=== PATIENT | male | born 1980 | race Caucasian/White ===

== ENCOUNTER 2022-06-20 08:33 | Outpatient (CLI) | payer OTHER, SELFPAY | END 2022-06-20 08:34 | disposition home or self-care (01) | LOC: NFLDREF 06-21 13:19 | PROVIDERS: PCP Family Medicine; Referring Provider Family Medicine; Visit Provider Family Medicine | DX: Z00.00 Encounter for general adult medical examination without abnormal findings (principal); E11.9 Type 2 diabetes mellitus without complications; E78.5 Hyperlipidemia, unspecified; E78.00 Pure hypercholesterolemia, unspecified; L03.90 Cellulitis, unspecified; J45.909 Unspecified asthma, uncomplicated | CPT/HCPCS: 80053; 80061; 82043; 82570 ==

== ENCOUNTER 2022-12-22 15:08 | Outpatient (CLI) | payer OTHER, SELFPAY | END 2022-12-22 15:09 | disposition home or self-care (01) | LOC: NFLDREF 12-30 08:57 | PROVIDERS: PCP Family Medicine; Referring Provider Family Medicine; Visit Provider Family Medicine | DX: E11.9 Type 2 diabetes mellitus without complications (principal); E78.5 Hyperlipidemia, unspecified; R79.89 Other specified abnormal findings of blood chemistry; J45.909 Unspecified asthma, uncomplicated; E78.00 Pure hypercholesterolemia, unspecified | CPT/HCPCS: 80053 ==

== ENCOUNTER 2023-12-27 15:14 | Emergency (ER) | payer OTHER, SELFPAY ==
[2023-12-27 15:19] VITALS: BP 140/94; PULSE 99; RESP 16; TEMP 36.2; O2SAT 95; BMI 36.2
[2023-12-27 15:49] VITALS: O2SAT 98
[2023-12-27 16:45] VITALS: BP 133/92
[2023-12-27 16:55] VITALS: BP 129/83
[2023-12-27] MEDS: NITROGLYCERIN 0.4 MG TAB.SUBL SUBLINGUAL (16:57)
--- NOTE | 2023-12-27 17:20 | ED.GENADULT ---
HPI - General Adult General Date Seen: 12/27/23 Chief complaint: Chest Pain Stated complaint: abnormal EKG - from [facility] Time Seen by Provider: 12/27/23 15:36 Source: patient, RN notes reviewed and old records reviewed Mode of arrival: ambulatory Limitations: no limitations History of Present Illness HPI narrative: Patient is a 43-year-old male here for evaluation of chest pain. He was in clinic earlier today and had an EKG, troponin, D-dimer, metabolic panel and CBC. These were all within normal limits. He had a chest x-ray as well which was normal. He tells me that he had an episode of chest pain starting last night around 8:00 p.m. after getting home from driving his kids around. He says that lasted for about 2 hours, localized left chest pain, achy in nature. Resolved spontaneously. No clear exertional component. He went to work this morning but by 9:00 a.m. says he was noticing pain again in it has been persistent since then. Seen in the ER at around 4:00 p.m. and states that pain has been constant since it started at 9:00 a.m.. He had a troponin in clinic around 2:00 p.m. which was negative. He does not smoke or drink excessively. Does have a history of diabetes. Normally does not have elevated blood pressure. Negative Lexiscan in 2019. Related Data Home Medications ?Medication ?Instructions ?Recorded ?Confirmed cholecalciferol (vitamin D3) 50 50 mcg PO QDAY 03/17/22 12/27/23 mcg (2,000 unit) capsule nirmatrelvir 300 mg (150 mg ea PO 12/27/23 x2)-ritonavir 100 mg tablet,dose pack (Paxlovid) Previous Rx's ?Medication ?Instructions ?Recorded albuterol sulfate 1.25 mg/3 mL 1.25 mg (3 mL) inhalation Q4-6H 06/23/22 solution for nebulization PRN shortness of breath or wheezing #90 mL albuterol sulfate 90 mcg/actuation 2 puff inhalation Q4-6H PRN 06/23/22 aerosol inhaler (Ventolin HFA) shortness of breath or wheezing #8.5 grams blood sugar diagnostic (Advanced #100 ea 06/23/22 Glucose Meter Test Strips) lancets (Accu-Chek Softclix #100 ea 06/23/22 Lancets) semaglutide 0.25 mg or 0.5 mg (2 0.5 mg (0.374 mL) subcut QWEEK #3 09/09/22 mg/1.5 mL) subcutaneous pen mL injector (Ozempic) fluticasone propionate 230 2 puff inhalation BID #12 grams 11/21/23 mcg-salmeterol 21 mcg/actuation HFA inhaler semaglutide 1 mg/dose (4 mg/3 mL) 1 mg (0.75 mL) subcut QWEEK #6 mL 12/27/23 subcutaneous pen injector (Ozempic) Allergies Allergy/AdvReac Type Severity Reaction Status Date / Time penicillin V Allergy Mild Unknown Verified 12/27/23 13:23 Review of Systems Status of ROS: Reports: 10 or more systems reviewed and unremarkable except as noted in History and below [facility] Medical History Elevated hemoglobin ?D58.2 - Other hemoglobinopathies (ICD-10) Hypertriglyceridemia ?E78.1 - Pure hyperglyceridemia (ICD-10) Neuropathy ?G62.9 - Polyneuropathy, unspecified (ICD-10) Encounter for annual physical exam ?Z00.00 - Encounter for general adult medical examination without abnormal findings (ICD-10) Social History Smoking Status: Never smoker Do you use any of these nicotine containing products: None Second hand tobacco smoke exposure: No How often do you have a drink containing alcohol: never How often do you have six or more drinks on one occasion: Never AUDIT-C Alcohol total score: 0 Non-prescribed substance use: denies use Little interest or pleasure in doing things: not at all Feeling down, depressed, or hopeless: not at all service: No Exam Narrative: Exam Narrative: Vital signs as noted above. In general, an alert, well-appearing patient. Head: Normocephalic, atraumatic. Eyes: Pupils are equal reactive. Extraocular movements are full. Conjunctivae are normal. ENT: Mucous membranes are moist. Throat is normal. Neck: Supple without lymphadenopathy. Heart: Regular rate and rhythm. No murmur or rub. Chest wall is nontender. Lungs: Clear bilaterally. No increased work of breathing, crackles or wheezes. Abdomen: Soft and nontender. No organomegaly. Extremities: Well perfused. No edema. No calf tenderness. Pulses intact. Neurologic: Patient is alert and oriented to person and place. Speech is fluent. Face is symmetric. Moves all extremities equally. Affect: Normal. Skin: Warm and dry. Well perfused. Const: Vital Signs, click to edit/add: Vital Signs - 24 hr 12/27/23 15:19 12/27/23 15:49 Temperature 97.2 F L Pulse Rate [Left P ulse Oximeter] 99 Respiratory Rate 16 Blood Pressure [Ri ght Upper Arm] 140/94 H Pulse Oximetry 95 98 Documenting provider has reviewed patient's vital signs: yes Course Course ED Course: Records from clinic were reviewed. I discussed with the patient and his that for the most part things that I would do here in the ER had been done already in clinic number reassuring. I did do a repeat troponin which is effectively a 2 hour troponin, this remains at 0. I repeated his EKG and I reviewed the EKG from clinic. This shows normal sinus rhythm, ventricular rate of 86, no acute ST segment changes, an unremarkable T-waves. EKG here in the ER is unchanged compared to previous. I did try giving him a nitroglycerin here, he feels like it helped his chest pain. I think a stress test as a reasonable next step. There is no sign today of acute coronary syndrome and symptoms are a little bit overall not entirely a suggestive of angina. I will have him take a daily aspirin while we finish getting this evaluated. Would like him to have a Lexiscan, then be seen by primary care. If at any time he has significant pain or new symptoms such as shortness of breath, nausea, vomiting, fainting etcetera, return immediately to the ER. Vital Signs Vital signs: Initial Vital Signs Temperature 97.2 F L 12/27/23 15:19 Temperature Source Temporal Artery Scan 12/27/23 15:19 Pulse Rate 99 12/27/23 15:19 Pulse Rhythm Regular 12/27/23 15:19 Pulse Strength 3+ Normal 12/27/23 15:19 Respiratory Rate 16 12/27/23 15:19 Blood Pressure 140/94 H 12/27/23 15:19 Blood Pressure Mean 109 H 12/27/23 15:19 Blood Pressure Position Sitting 12/27/23 15:19 Pulse Oximetry 95 12/27/23 15:19 Vital Signs Temperature 97.2 F L 12/27/23 15:19 Pulse Rate 99 12/27/23 15:19 Respiratory Rate 16 12/27/23 15:19 Blood Pressure 140/94 H 12/27/23 15:19 Pulse Oximetry 95 12/27/23 15:19 Temperature 97.2 F L 12/27/23 15:19 Pulse Rate 99 12/27/23 15:19 Respiratory Rate 16 12/27/23 15:19 Blood Pressure 140/94 H 12/27/23 15:19 Pulse Oximetry 98 12/27/23 15:49 Medications Administered Medications: Discontinued Medications Generic Name Dose Route Start Last Admin Trade Name Freq PRN Reason Stop Dose Admin Nitroglycerin 0.4 mg 12/27/23 16:51 12/27/23 16:57 Nitroglycerin 0.4 Mg Tab.Subl SUBLINGUAL 12/27/23 16:52 0.4 mg ONCE ONE Administration Medical Decision Making Lab Data Labs: Lab Results 12/27/23 Range/Units 15:49 POC Troponin I 0.00 L (0.01-0.04) ng/ml Discharge Plan Discharge Clinical Impression: Chest pain Patient Disposition: Home, Self-Care Condition: Stable Instructions: Chest Pain (DC) Additional Instructions: We will get you set up for a follow-up stress test, I have placed this order and someone should call you from here to get this scheduled. For now, lets have you take an aspirin daily while we are finishing your work up. For severe pain or new symptoms such as shortness of breath, nausea, vomiting, the fainting etcetera, return to the emergency department at any time. You should be seen by your primary doctor following your stress test Prescriptions: No Action (DME) Advanced Gluc Meter Test Strip Strip See Rx Instructions .Route Qty: 100 1RF Rx Instructions: bid (DME) lancets [Accu-Chek Softclix Lancets] Misc See Rx Instructions .Route Qty: 100 1RF Rx Instructions: bid albuterol sulfate [Ventolin HFA] 90 mcg/actuation HFA aerosol inhaler 2 puff inhalation Q4-6H PRN (Reason: shortness of breath or wheezing) Qty: 8.5 2RF albuterol sulfate 1.25 mg/3 mL solution for nebulization 1.25 mg inhalation Q4-6H PRN (Reason: shortness of breath or wheezing) Qty: 90 1RF Paxlovid 300 mg (150 mg x 2)-100 mg tablets,dose pack PO cholecalciferol (vitamin D3) 50 mcg (2,000 unit) capsule 50 mcg PO QDAY Ozempic 0.25 mg or 0.5 mg(2 mg/1.5 mL) pen injector 0.5 mg subcut QWEEK Qty: 3 2RF fluticasone propion-salmeterol 230-21 mcg/actuation HFA aerosol inhaler 2 puff inhalation BID Qty: 12 2RF Ozempic 1 mg/dose (4 mg/3 mL) pen injector 1 mg subcut QWEEK Qty: 6 1RF Follow Up/Referrals: Alexx Richardson MD [Primary Care Provider] - Stand Alone [facility] Inst[facility]
[2023-12-27 17:22] VITALS: BP 126/83
== END 2023-12-27 17:30 | disposition home or self-care (01) ==
PROVIDERS: Emergency Provider Emergency Medicine; PCP Family Medicine
DX: R07.9 Chest pain, unspecified (principal)
CPT/HCPCS: 84484; 93005; 94761; 99284; A9270

== ENCOUNTER 2024-01-09 08:17 | Outpatient (RCR) | payer OTHER, SELFPAY ==
[2024-01-09] MEDS: REGADENOSON 0.4 MG/5 ML SYRINGE IVP (10:10)
[2024-01-09] MEDS: SODIUM CHLORIDE 0.9 % (FLUSH) 10 ML SYRINGE IVF (10:10)
[2024-01-09 10:16] VITALS: BP 146/85; PULSE 106; RESP 16
--- NOTE | 2024-01-09 11:26 | PM.ST ---
Stress Test Note Date Date Seen: 01/09/24 Date of test: 01/09/24 Providers Primary care provider: Alexx Richardson Stress test physician: Tj Mae Stress Test Note Stress test ordered: Lexiscan Indication for test: Chest Pain Stress test medicine: Lexiscan Results discussion: 43-year-old gentleman who presents here for the above test. After discussion the risks benefits and side effects he would like to proceed , pretest cardiac history form is reviewed. Indication for test is chest pain. Pretest EKG shows normal sinus rhythm, with a ventricular rate of 90 and a blood pressure 134/90. Standard infusion of Lexiscan is done over a 5 minute. Following protocol, he achieved a metabolic equivalent of 1.6, with a maximum heart rate of 125. No significant symptomatic or subjective complaints are noted. Review of the tracing shows no evidence of ST wave changes suggestive of ischemia or any change, there is no dysrhythmias. Impression: Negative electrographic portion of Lexiscan. Subjectively negative Follow up suggested: Await nuclear Medicine review of the test, the clinical correlation with this will be needed, Tums the patient will follow-up with primary care physician we did make him an appointment. The there were no complications
== END 2024-01-09 10:17 | disposition home or self-care (01) ==
LOC: STRESS 08:17
PROVIDERS: PCP Family Medicine; Visit Provider Emergency Medicine
DX: R07.9 Chest pain, unspecified (principal)
CPT/HCPCS: 78452; 93016; 93017; A9500; J2785

== ENCOUNTER 2024-02-08 15:10 | Outpatient (CLI) | payer OTHER, SELFPAY ==
--- OUTSIDE RECORDS SUMMARY | 2024-02-08 15:12 | XMS_ITS | Clinical Summary ---
Author Organization [employer] [facility] [employer] [facility] Address [place], [place] [address] Care Team Providers Care Buzzsaw Operator Name Role Phone Nonstaff, Doctor Primary Care Provider Unavailab le Allergies Active Allergy Reactions Criticality Noted Date Comments Penicillins Rash 09/22/2006 Theophylline Vomiting 09/22/2006 Medications Medication Sig Dispensed Refills Start Date End Date Status albuterol (PROVENTIL) 0.083 % neb solutionIndications:M ild persistent asthma without complication Inhale 3 mL via a nebulizer every 4 hours if needed. 1 box 4 02/03/2017 Active atorvastatin (LIPITOR) 20 mg tabletIndications:Hyp erlipidemia, unspecified hyperlipidemia type,High triglycerides Take 1 tablet by mouth once daily. 90 tablet 3 02/03/2017 Active fluticasone-salmetero l (ADVAIR DISKUS) 250-50 mcg/Dose diskus inhalerIndications:Mi ld intermittent asthma without complication Inhale 1 Puff by mouth 2 times daily. 3 Inhaler 4 02/03/2017 Active fluticasone-salmetero l (ADVAIR DISKUS) 500-50 mcg/Dose diskus inhalerIndications:Mi ld persistent asthma without complication Inhale 1 Puff by mouth 2 times daily. 1 Inhaler 3 02/03/2017 Active albuterol HFA (PROAIR HFA) 90 mcg/actuation inhalerIndications:Mi ld intermittent asthma without complication Inhale 2 Puffs by mouth every 4 hours if needed. 8.5 g 6 02/03/2017 Active CPAPIndications:Obstr uctive sleep apnea CPAP machine for home use at pressure: 4-15 CM H20 , Heated humidifier x 1, Humidifier chamber x 1, Full face mask with cushion x 1, Heated tubing x 1, Headgear x 1, Filters: Disposable x 1pk & Reusable x 1pk, Length of Need: 99 months, Frequency of use: Daily 1 Device 03/17/2017 Active olopatadine (PATANOL) 0.1 % ophthalmic solutionIndications:A llergic conjunctivitis of both eyes Place 1 Drop into both eyes 2 times daily. 2 Bottle 5 03/30/2017 Active Active Problems Problem Noted Date Diagnosed Date Mild persistent asthma without complication 01/09 High triglycerides 02/19/2010 Unspecified asthma(493.90) 09/22/2006 Undiagnosed cardiac murmurs 09/22/2006 Other specified gastritis without mention of hem orrhage 09/22/2006 Esophageal reflux 09/22/2006 Encounters Date Type Department Care Team Description 02/08/2024 2:30 PM CDT Office Visit [facility] [address] [place] [address] Darrius Parrish MD Arrived 01/09/2024 8:30 AM CDT Ancillary Procedure [facility] [address] [place] [address] from Last 3 Months Immunizations Name Administration Dates Next Due Influenza, IIV3 (Age >=3 years) 03/16/2011,02/19,01/27/2009,02/04/2006 Td (Age >=7 Years) 05/07/2001 Family History Medical History Relation Name Comments Diabetes Father Other Father obesity Good Health Mother Other Mother obesity Other Sister 1 obesity Other Sister 2 obesity Relation Name Status Comments Father Mother Sister 1 Sister 2 Social History Tobacco Use Types Packs/Day Years Used Date Smoking Tobacco: Never Smokeless Tobacco: Never Tobacco Cessation:Counseling Given: Yes Alcohol Use Standard Drinks/Week Comments No 0 (1 standard drink = 0.6 oz pur e alcohol) Sex and Gender Information Value Date Recorded Sex Assigned at Not on file Gender Identity Not on file Sexual Orientation Not on file Obstetrics History Last Filed Vital Signs Vital Sign Reading Time Taken Comments Blood Pressure 117/74 03/30/2017 4:31 PM SUBSTATION OPERATOR CONVERSION Pulse 90 03/30/2017 4:31 PM SUBSTATION OPERATOR CONVERSION Temperature 37.1 ??C (98.8 ??F) 03/17/2017 9:11 AM CS T Respiratory Rate 20 03/17/2017 9:11 AM SUBSTATION OPERATOR CONVERSION Oxygen Saturation 96% 03/30/2017 4:31 PM SUBSTATION OPERATOR CONVERSION Inhaled Oxygen Concentration - - Weight 128.8 kg (284 lb) 03/30/2017 4:31 PM SUBSTATION OPERATOR CONVERSION Height 182.9 cm (6') 03/30/2017 4:31 PM SUBSTATION OPERATOR CONVERSION Body Mass Index 38.52 03/30/2017 4:31 PM SUBSTATION OPERATOR CONVERSION Plan of Treatment Health Maintenance Due Date Last Done Comments Tdap 1990 HIV for age 15-65 1994 Hepatitis C screening for age 18-79 1997 Tetanus booster 05/07/2011 05/07/2001 Depression screening for age 12+ 02/03/2018 02/03/2017, 11/23/2015 BMI (ht and wt on same day) for age 18+ 03/30/2018 03/30/2017, 02/03/2017, 07/25/2016, Additional history exists Lipids for age 35-44 02/06/2022 02/06/2017, 05/12/2014, 05/12/2014, Additional history exists COVID-19 vaccine series ( season) 2023 Influenza for age 9-49 12/10/2023 , 02/19/2010, 01/27/2009, Additional history exists Pneumococcal series for age 6-64 Aged Out No longer eligible based on patient's age to complete this topic Procedures Procedure Name Priority Date/Time Associated Diagnosis Comments NM CARDIAC MPI STRESS TEST Routine 01/09/2024 1:20 PM CDT Chest pain LIPID PANEL W REFLEX MEASURED LDL Routine 02/06/2017 9:03 AM CDT High triglycerides from Last 3 Months or Most Recently Relevant to Health Maintenance Results * NM CARDIAC MPI STRESS TEST (01/09/2024 1:20 PM CDT) Anatomical Region Laterality Modality HEART Ultrasound 01/02/2024 9:18 AM CDT Narrative 01/10/2024 12:54 PM CDT ? Toll -free: [phone] ?[employer] ?MYOCARDIAL PERFUSION IMAGING REPORT REST/STRESS SINGLE ISOTOPE GATED SPECT IMAGING. Patient Name: ?? QUINTEN Jacobs SONNY ? Gender: ? M ? Height: ? 72 in Accession #: ?[id number] ?Weight: ? 266 lb Study Date: ? 01/02/2024 9:18:38 AM ? BSA: ?2.40 m? ? ? : ?1980 43 years ? BMI: ?36.08 kg/m? ? ? Ord. Prov.: ? SALLY H BLOCK ? Monitoring Prov.: Dr. Mae Performing Site [facility] Clinical History: ? Chest pain, lightheaded and palpitations. No known ?coronary artery disease. Cardiac Risk Factors: Hypercholesterolemia and diabetes mellitus. Other Symptomatology: Sleep apnea. Cardiac History: ?None known. Beta laura/calcium channel laura/nitrate taken today: Unknown. Caffeine/methylxanthine taken within 12 hrs: ?Unknown. Chest pain/discomfort at baseline: ?Unknown. IMPRESSION 1. Myocardial perfusion was abnormal. There was a medium-sized area of mild ischemia in the basal, mid, and apical anterior wall. 2. Left ventricular cavity size was normal (resting EDV 123 ml). 3. Overall left ventricular systolic function was normal without wall motion abnormalities. The post stress LVEF was calculated to be 72 %. 4. See separate report for EKG intrepretation. 5. There were no prior studies available for comparison. STRESS MPI PROCEDURE The patient was studied utilizing a two day rest/stress protocol. Myocardial perfusion imaging was performed at rest, 35 minutes following the intravenous injection of 40.4 mCi of 99mTc sestamibi. On the second day, 30 seconds after the 15 second IV regadenoson injection, the patient was injected via IV with 41.1 mCi of 99mTc sestamibi. Gated post-stress tomographic imaging was performed 40 minutes after stress. After image acquisition was completed, data was reconstructed in short, horizontal long and vertical long axis views and tomographic slices were generated. - Pharmacologic stress testing was performed with an IV regadenoson dose of 0.4 mg. - Low level exercise consisting of walking on treadmill at 0.8 mph with a 0% grade was performed for 1 minute prior to, during, and 2 minutes after the vasodilator infusion. - Resting heart rate was 92 bpm, peak heart rate was 125 bpm. - Resting blood pressure was 134 mmHg/90 mmHg; peak blood pressure was 167 mmHg/87 mmHg. - Patient did not develop significant symptoms. FINDINGS Imaging - The overall quality of the study was excellent with mild soft tissue attenuation on rest and stress studies. Computerized motion correction was not applied. - SPECT images demonstrated a medium-sized reversible perfusion abnormality of mild intensity in the basal, mid, and apical anterior wall consistent with ischemia. The specificity of this finding may be decreased by soft tissue attenuation, and most likely represents artifact as opposed to a physiologic finding. - No other fixed or reversible perfusion defects were identified. - Computer processed gated imaging revealed normal left ventricular size with a calculated LVEF of 72 %. (Lab normals: LVEF >50%, LV Size <150 ml). - There was normal post-stress myocardial thickening and wall motion. - No right ventricular abnormalities were identified. - There was no evidence of abnormal lung or extracardiac activity. - Risk/extent of ischemia per ACC Noninvasive Risk Stratification Guideline: LOW RISK. This study was interpreted and electronically signed by Neo Yousif MD on 01/09/2024 4:20:10 PM. ??Final (Updated) ?? Procedure Note Neo Yousif MD - 01/10/2024 Toll -free: [phone] [employer] MYOCARDIAL PERFUSION IMAGING REPORT REST/STRESS SINGLE ISOTOPE GATED SPECT IMAGING. Patient Name: QUINTEN DENNIS Gender: Gisele Height: 72 in Weight: 266 lb Study Date: 01/02/2024 9:18:38 AM BSA: 2.40 m? ? ? : 1980 43 years BMI: 36.08kg/m? ? ? Ord. Prov.: SALLY DE LEON Monitoring Prov.: Dr. Mae Performing Site [facility] Clinical History: Chest pain, lightheaded and palpitations. No known coronary artery disease. Cardiac Risk Factors: Hypercholesterolemia and diabetes mellitus. Other Symptomatology: Sleep apnea. Cardiac History: None known. Beta laura/calcium channel laura/nitrate taken today: Unknown. Caffeine/methylxanthine taken within 12 hrs: Unknown. Chest pain/discomfort at baseline: Unknown. IMPRESSION 1. Myocardial perfusion was abnormal. There was a medium-sized area ofmild ischemia in the basal, mid, and apical anterior wall. 2. Left ventricular cavity size was normal (resting EDV 123 ml). 3. Overall left ventricular systolic function was normal without wallmotion abnormalities. The post stress LVEF was calculated to be 72 %. 4. See separate report for EKG intrepretation. 5. There were no prior studies available for comparison. STRESS MPI PROCEDURE The patient was studied utilizing a two day rest/stress protocol.Myocardial perfusion imaging was performed at rest, 35 minutes followingthe intravenous injection of 40.4 mCi of 99mTc sestamibi. On the secondday, 30 seconds after the 15 second IV regadenoson injection, the patientwas injected via IV with 41.1 mCi of 99mTc sestamibi. Gated post-stresstomographic imaging was performed 40 minutes after stress. After imageacquisition was completed, data was reconstructed in short, horizontallong and vertical long axis views and tomographic slices were generated. - Pharmacologic stress testing was performed with an IV regadenoson doseof 0.4 mg. - Low level exercise consisting of walking on treadmill at 0.8 mph with a0% grade was performed for 1 minute prior to, during, and 2 minutes afterthe vasodilator infusion. - Resting heart rate was 92 bpm, peak heart rate was 125 bpm. - Resting blood pressure was 134 mmHg/90 mmHg; peak blood pressure fui439 mmHg/87 mmHg. - Patient did not develop significant symptoms. FINDINGS Imaging - The overall quality of the study was excellent with mild soft tissue attenuation on rest and stress studies. Computerized motion correction wasnot applied. - SPECT images demonstrated a medium-sized reversible perfusionabnormality of mild intensity in the basal, mid, and apical anterior wall consistentwith ischemia. The specificity of this finding may be decreased by softtissue attenuation, and most likely represents artifact as opposed to aphysiologic finding. - No other fixed or reversible perfusion defects were identified. - Computer processed gated imaging revealed normal left ventricular sizewith a calculated LVEF of 72 %. (Lab normals: LVEF >50%, LV Size <150 ml). - There was normal post-stress myocardial thickening and wall motion. - No right ventricular abnormalities were identified. - There was no evidence of abnormal lung or extracardiac activity. - Risk/extent of ischemia per ACC Noninvasive Risk StratificationGuideline: LOW RISK. This study was interpreted and electronically signed by Jonny Weber 01/09/2024 4:20:10 PM. Final (Updated) Sally De Leon MD NM * (ABNORMAL) LIPID PANEL W REFLEX MEASURED LDL (02/06/2017 9:03 AM CDT) CHOLESTEROL,TOTAL 230(H) 100 - 199 mg/dL 02/06/2017 1:09 PM CDT [facility] TRIGLYCERIDES 395(H) <150 mg/dL 02/06/2017 1:09 PM CDT [facility] HDL CHOLESTEROL 34(L) >40 mg/dL 7 1:09 PM CDT [facility] NON-HDL CHOLESTEROL 196(H) <145 mg/dl 02/06/2017 1:09 PM CDT [facility] CHOL/HDL RATIO 6.76(H) <4.50 02/06/2017 1:09 PM CDT [facility] LDL CHOLESTEROL 117 <=130 mg/dL 02/06/2017 1:09 PM CDT [facility] PROVIDER ORDERED STATUS RANDOM 02/06/2017 1:09 PM CDT [facility] Blood BLOOD SPECIMEN / Unknown Venipuncture / Unknown 02/06/2017 9:03 AM CDT 02/06/2017 9:03 AM CDT Godfrey Martel MD [facility] [address] [place] [address], from Last 3 Months or Most Recently Relevant to Health Maintenance Care Teams Buzzsaw Operator Relationship Specialty Start Date End Date Nonstaff, Doctor NON STAFF DOCTOR PCP - General 09/12/22
== END 2024-02-08 15:11 | disposition home or self-care (01) ==
LOC: NFLDREF 15:10
PROVIDERS: PCP Family Medicine; Visit Provider Internal Medicine Cardiovascular Disease
DX: Z13.29 Encounter for screening for other suspected endocrine disorder (principal)
CPT/HCPCS: 84443

== ENCOUNTER 2024-02-26 13:04 | Outpatient (CLI) | payer OTHER, SELFPAY ==
--- OUTSIDE RECORDS SUMMARY | 2024-02-26 13:07 | XMS_ITS | Clinical Summary ---
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 Name Role Phone Nonstaff, Doctor Primary Care [...] Encounters Date Type Department Care Team Description 02/09/2024 Orders Only [facility] [address] [place] [address] Maricel Lee 1 scan: (1-Ord) [facility]; TSH 02/08/2024 02/09/2024 Orders Only [facility] [address] [place] [address] Darrius Parrish MD <No scans attached> 02/08/2024 2:30 PM CDT Office Visit [facility] [address] [place] [address] Darrius Parrish MD 01/09/2024 8:30 AM CDT Ancillary Procedure [facility] [address] [place] [address] from Last 3 Months Immunizations Name Administration [...] Comments Blood Pressure 117/74 03/30/2017 4:31 PM TAPE WEAVER Pulse 90 03/30/2017 4:31 PM TAPE WEAVER Temperature 37.1 C (98.8 F) 03/17/2017 9:11 AM TAPE WEAVER Respiratory Rate 20 03/17/2017 9:11 AM TAPE WEAVER Oxygen Saturation 96% 03/30/2017 4:31 PM TAPE WEAVER Inhaled Oxygen Concentration - - Weight 128.8 kg (284 lb) 03/30/2017 4:31 PM TAPE WEAVER Height 182.9 cm (6') 03/30/2017 4:31 PM TAPE WEAVER Body Mass Index 38.52 03/30/2017 4:31 PM TAPE WEAVER Plan of Treatment Health Maintenance Due Date [...] season) 2023 Influenza for age 9-49 12/10/2023 1, 02/19/2010, 01/27/2009, Additional history exists Pneumococcal series for age 6-64 Aged Out No longer eligible based on patient's age to complete this topic Procedures Procedure Name Priority Date/Time Associated Diagnosis Comments TSH Routine 02/08/2024 Chest discomfort NM CARDIAC MPI STRESS TEST Routine 01/09/2024 1:20 PM CDT Chest pain LIPID PANEL W REFLEX MEASURED LDL Routine 02/06/2017 9:03 AM CDT High triglycerides from Last 3 Months or Most Recently Relevant to Health Maintenance Results * TSH (02/08/2024) TSH 1.050 Blood BLOOD SPECIMEN / Unknown 02/08/2024 Narrative Rosa Maricel Sharron - 02/08/2024 See scans Darrius Parrish MD CHEMISTRY * NM CARDIAC MPI STRESS TEST (01/09/2024 1:20 PM CDT) Anatomical Region Laterality Modality HEART Ultrasound 01/02/2024 9:18 AM CDT Narrative 01/10/2024 12:54 PM CDT Toll -free: [phone] [employer] MYOCARDIAL PERFUSION IMAGING REPORT REST/STRESS SINGLE ISOTOPE GATED SPECT IMAGING. Patient Name: QUINTEN DENNIS Gender: Gisele Height: 72 in Weight: 266 lb Study Date: 01/02/2024 9:18:38 AM BSA: 2.40 m : 1980 43 years BMI: 36.08 kg/m Ord. Prov.: SALLY DE LEON Monitoring Prov.: Dr. Mae Performing Site [facility] Clinical History: Chest pain, lightheaded [...] Neo Yousif MD on 01/09/2024 4:20:10 PM. Final (Updated) Procedure Note Neo Yousif MD - 01/10/2024 Toll -free: [phone] [employer] MYOCARDIAL PERFUSION IMAGING REPORT REST/STRESS SINGLE ISOTOPE GATED SPECT IMAGING. Patient Name: QUINTEN DENNIS Gender: Gisele Height: 72 in Weight: 266 lb Study Date: 01/02/2024 9:18:38 AM BSA: 2.40 m : 1980 43 years BMI: 36.08kg/m Ord. Prov.: SALLY DE LEON Monitoring Prov.: Dr. Mae Performing Site [facility] Clinical History: Chest pain, lightheaded and palpitations. [...] was 134 mmHg/90 mmHg; peak blood pressure [id number] mmHg/87 mmHg. - Patient did not develop [...] - 199 mg/dL 02/06/2017 1:09 PM CDT [facility] TRIGLYCERIDES 395(H) <150 mg/dL 02/06/2017 1:09 PM CDT [facility] HDL CHOLESTEROL 34(L) >40 mg/dL 7 1:09 PM CDT [facility] NON-HDL CHOLESTEROL 196(H) <145 mg/dl 02/06/2017 1:09 PM CDT [facility] CHOL/HDL RATIO 6.76(H) <4.50 02/06/2017 1:09 PM CDT [facility] LDL CHOLESTEROL 117 <=130 mg/dL 02/06/2017 1:09 PM T [facility] PROVIDER ORDERED STATUS RANDOM 02/06/2017 1:09 PM CDT [facility] Blood BLOOD SPECIMEN / Unknown Venipuncture / Unknown 02/06/2017 9:03 AM CDT 02/06/2017 9:03 AM CDT Godfrey Martel MD CHEMISTRY [facility] [address] [place] [address], from Last 3 Months or Most Recently Relevant to Health Maintenance Care Teams Nuclear Reactor Engineer Relationship Specialty Start Date End Date Nonstaff, Doctor NON STAFF DOCTOR PCP - General 09/12/22
== END 2024-02-26 13:05 | disposition home or self-care (01) ==
LOC: RAD 13:05
PROVIDERS: PCP Family Medicine; Visit Provider Internal Medicine Cardiovascular Disease
DX: R07.9 Chest pain, unspecified (principal)
CPT/HCPCS: 93306

== ENCOUNTER 2024-09-17 10:12 | Outpatient (CLI) | payer OTHER, SELFPAY | END 2024-09-17 10:13 | disposition home or self-care (01) | PROVIDERS: PCP Family Medicine; Visit Provider Family Medicine | DX: E78.5 Hyperlipidemia, unspecified (principal); E11.65 Type 2 diabetes mellitus with hyperglycemia; Z12.5 Encounter for screening for malignant neoplasm of prostate | CPT/HCPCS: 80053; 80061; 82043; 82570; G0103 ==

== ENCOUNTER 2025-03-09 09:52 | Outpatient (CLI) | payer OTHER, SELFPAY | END 2025-03-09 09:53 | disposition home or self-care (01) | PROVIDERS: PCP Family Medicine; Visit Provider Physician Assistant | DX: M79.675 Pain in left toe(s) (principal) | CPT/HCPCS: 84550 ==